=== PATIENT | male | born 1965 | race Caucasian/White ===

== ENCOUNTER 2017-09-09 19:42 | Emergency (ER) | payer OTHER ==
[~2017-09-09] VITALS: Ht 172.7 cm; Wt 83.9 kg
[2017-09-09] MEDS ORDERED: GABAPENTIN 300 MG CAPSULE (20:41)
[2017-09-09] MEDS ORDERED: DIAZEPAM 5 MG TABLET (20:41)
[2017-09-09] MEDS ORDERED: METHOCARBAMOL 500 MG TABLET (20:41)
[2017-09-09] MEDS ORDERED: HYDROCODONE-ACETAMIN 10-325 MG (20:41)
[2017-09-09] MEDS ORDERED: BUPROPION HCL XL 150 MG TABLET (20:41)
--- NOTE | 2017-09-09 20:48 | NUR ---
Patient in bed, no acute distress noted. VSS. ER MD at bedside for patient evaluation.
[2017-09-09] MEDS ORDERED: OXYCODONE/APAP 5-325 MG TABLET PO ONE (21:00)
[2017-09-09] MEDS ORDERED: OXYCODONE/APAP 5-325 MG TABLET ONE (21:07)
--- NOTE | 2017-09-09 21:12 | NUR ---
Patient unable to take Percocet, patient will driving home in private vehicle. ER MD aware
--- NOTE | 2017-09-09 21:17 | NUR ---
dPatient discharged to home in stable conditon. Written and verbal after care instructions given. Patient verbalizes understanding of instructions. Ambulated from ER with stable gait. All belongings with patient.
[2017-09-09 21:18] VITALS: BP 121/74
== END 2017-09-09 21:19 | disposition home or self-care (01) ==
LOC: ER 19:47
DX: L05.01 Pilonidal cyst with abscess (principal); G89.29 Other chronic pain; Z90.49 Acquired absence of other specified parts of digestive tract; Z79.891 Long term (current) use of opiate analgesic; Z79.899 Other long term (current) drug therapy
CPT/HCPCS: A4663

== ENCOUNTER 2018-01-31 18:42 | Emergency (ER) | payer OTHER ==
[~2018-01-31] VITALS: Ht 172.7 cm; Wt 84.8 kg
[~2018-01-31 18:42] MED LIST: BUPROPION HCL XL 150 MG TABLET; DIAZEPAM 5 MG TABLET; GABAPENTIN 300 MG CAPSULE; HYDROCODONE-ACETAMIN 10-325 MG; METHOCARBAMOL 500 MG TABLET
--- NOTE | 2018-01-31 19:38 | NUR ---
MD PENA AT BEDSIDE FOR MSE
--- NOTE | 2018-01-31 19:50 | NUR ---
Patient discharged to home in stable conditon. Written and verbal after care instructions given. Patient verbalizes understanding of instructions. Patient able to ambulate unassisted with a steady gait. Patient left with all personal belongings.
[2018-01-31 19:55] VITALS: BP 138/84
== END 2018-01-31 19:50 | disposition home or self-care (01) ==
LOC: ER 18:42
DX: K64.9 Unspecified hemorrhoids (principal); L05.01 Pilonidal cyst with abscess; Z90.49 Acquired absence of other specified parts of digestive tract
CPT/HCPCS: A4663

== ENCOUNTER 2018-10-23 16:02 | Emergency (ER) | payer MEDICAID, OTHER ==
[~2018-10-23] VITALS: Ht 172.7 cm; Wt 83.9 kg
--- NOTE | 2018-10-23 17:05 | NUR ---
DR MAGALLON AT THE BEDSIDE FOR MSE.
[2018-10-23] MEDS ORDERED: IV NORMAL SALINE 1000 ML BAG IV ONE (17:15)
[2018-10-23 17:39] LABS: BASOPHILS # (AUTO) 0.1 K/uL (0.0-8.0); BASOPHILS % (AUTO) 0.8 % (0.0-2.0); EOSINOPHILS # (AUTO) 0.1 K/uL (0.0-0.7); EOSINOPHILS % (AUTO) 1.2 % (0.0-7.0); HEMATOCRIT 42.3 % (36.7-47.1); HEMOGLOBIN 14.1 g/dL (12.5-16.3); LYMPHOCYTES # (AUTO) 1.6 K/uL (20.0-40.0); LYMPHOCYTES % (AUTO) 22.8 % (20.5-51.5); MEAN CORPUSCULAR HEMOGLOBIN 28.9 uug (23.8-33.4); MEAN CORPUSCULAR HGB CONC 33 g/dL (32.5-36.3); MEAN CORPUSCULAR VOLUME 86.9 fL (73.0-96.2); MONOCYTES # (AUTO) 0.6 K/uL (2.0-10.0); MONOCYTES % (AUTO) 8.2 % (0.0-11.0); NEUTROPHILS # (AUTO) 4.7 K/uL (1.8-8.9); PLATELET COUNT (AUTO) 198 K/uL (152-348); RED BLOOD CELL COUNT(AUTO) 4.87 MIL/uL (4.06-5.63); WHITE BLOOD COUNT (AUTO) 7.1 K/uL (3.6-10.2)
[2018-10-23 17:45] LABS: POTASSIUM 3.7 mmol/L (3.5-5.1)
[2018-10-23 17:50] LABS: BILIRUBIN,DIRECT 0.1 mg/dL (0.0-0.2); BILIRUBIN,TOTAL 0.4 mg/dL (0.2-1.0); TOTAL PROTEIN, SERUM 6.9 g/dL (6.4-8.2)
--- NOTE | 2018-10-23 17:59 | NUR ---
PT BACK FROM CT, RESTING IN BED.
--- NOTE | 2018-10-23 19:02 | NUR ---
IV removed. Catheter intact and site benign. Pressure and 4x4 gauze applied to site. No bleeding noted.
[2018-10-23 19:03] VITALS: BP 126/69
--- NOTE | 2018-10-23 19:04 | NUR ---
Patient discharged to home in stable conditon. Written and verbal after care instructions given. Patient verbalizes understanding of instructions.
== END 2018-10-23 19:04 | disposition home or self-care (01) ==
LOC: ER 16:04
DX: R55 Syncope and collapse (principal); R42 Dizziness and giddiness; H92.02 Otalgia, left ear; K21.9 Gastro-esophageal reflux disease without esophagitis; F12.10 Cannabis abuse, uncomplicated; Z90.49 Acquired absence of other specified parts of digestive tract; Z79.899 Other long term (current) drug therapy
CPT/HCPCS: 36415; 70030-TC; 70450; 71045; 85025; 93005; A4663; J7030

== ENCOUNTER 2019-05-14 15:25 | Emergency (ER) | payer MEDICAID ==
[~2019-05-14] VITALS: Ht 172.7 cm; Wt 59.9 kg
--- NOTE | 2019-05-14 15:42 | NUR ---
STEFFEN LOU AT BEDSIDE FOR MSE.
--- NOTE | 2019-05-14 16:35 | NUR ---
Patient discharged to home in stable conditon. Written and verbal after care instructions given. Patient verbalizes understanding of instructions. ALL BELONGINGS W/ PT. PT SELF-AMBULATED W/O DIFFICULTY.
[2019-05-14 16:36] VITALS: BP 131/72
== END 2019-05-14 16:36 | disposition home or self-care (01) ==
LOC: ER 15:25
DX: L60.0 Ingrowing nail (principal); K64.9 Unspecified hemorrhoids; K21.9 Gastro-esophageal reflux disease without esophagitis; F12.10 Cannabis abuse, uncomplicated; Z90.49 Acquired absence of other specified parts of digestive tract; Z79.899 Other long term (current) drug therapy
CPT/HCPCS: A4663

== ENCOUNTER 2021-03-09 14:18 | Emergency (ER) | payer OTHER ==
[~2021-03-09] VITALS: Ht 172.7 cm; Wt 84.8 kg
--- NOTE | 2021-03-09 15:00 | NUR ---
Patient discharged to home in stable condition. Written and verbal after care instructions given. Patient verbalizes understanding of instructions. Stressed follow up or return to ER for worsening s/s.
[2021-03-09] MEDS ORDERED: HYDR-3980 PO (15:05)
== END 2021-03-09 15:29 | disposition home or self-care (01) ==
LOC: ER 14:21
DX: M54.9 Dorsalgia, unspecified (principal); Z76.0 Encounter for issue of repeat prescription; Z90.49 Acquired absence of other specified parts of digestive tract; M47.9 Spondylosis, unspecified; K21.9 Gastro-esophageal reflux disease without esophagitis
CPT/HCPCS: A4663